=== PATIENT | male | born 1995 | race Hispanic/Latino ===

== ENCOUNTER 2023-02-05 23:23 | Inpatient (IN) | payer OTHER, SELFPAY ==
[2023-02-06] MEDS ORDERED: Morphine 2 MG/ML VIAL ONE (00:46)
[2023-02-06] MEDS ORDERED: Ondansetron PF 4 MG/2 ML Vial ONE ×2 (00:46→12:56)
[2023-02-06 00:53] LABS: #Eosinphils 0.1 thou/uL (0.0-0.7); #Monocytes 0.6 thou/uL (0.11-0.59); #Neutrophils 4.6 thou/uL (1.40-6.50); %Basophils 0.4 % (0.0-1.0); %Eosinophils 1.2 % (0.0-10.0); %Monocytes 7.7 % (0.0-10.0); Hematocrit 49.5 % (42.0-52.0); Hemoglobin 15.6 g/dL (14.0-18.0); Mean Corpuscular HGB CONC 31.5 g/dL (32.0-36.0); Mean Corpuscular Volume 88.9 fl (78.0-98.0); Mean Platelet Volume 8.7 fL (7.4-10.4); Platelet Count 283 10x3/uL (130-400); RBC Distribution Width 14.9 % (11.5-14.5); Red Blood Cell (RBC) Count 5.57 mill/uL (4.70-6.10); White Blood Cell (WBC) Count 7.5 10x3/uL (4.8-10.8)
[2023-02-06 01:17] LABS: ALT (SGPT) 37 U/L (8-55); AST (SGOT) 51 U/L (5-34); Albumin 4.1 g/dL (3.5-5.0); Alcohol 190.8 mg/dL (Less than 10); Alkaline Phosphatase 76 U/L (40-110); Anion Gap 17 mmol/L (10-20); BUN (Urea Nitrogen) 7 mg/dL (8.9-20.6); Bilirubin, Total 0.2 mg/dL (0.2-1.2); Calc. Creatinine Clearance 0 mL/min (70-130); Calcium 8.7 mg/dL (7.8-10.44); Carbon Dioxide 23 mmol/L (22-29); Chloride 109 mmol/L (98-107); Estimated GFR 127; Globulin 3.4 g/dL (2.4-3.5); Glucose 94 mg/dL (70-105); Potassium 3.9 mmol/L (3.5-5.1); Protein, Total 7.5 g/dL (6.0-8.3); Sodium 145 mmol/L (136-145)
[2023-02-06] MEDS ORDERED: Sodium Chloride 0.9% 1,000 ML IV SCH (02:15)
[2023-02-06] MEDS ORDERED: Acetaminophen 325 MG TAB PO PRN (02:15)
[2023-02-06] MEDS ORDERED: Ondansetron ODT 4 MG TAB SL PRN (02:15)
[2023-02-06] MEDS ORDERED: Ondansetron PF 4 MG/2 ML Vial IVP PRN ×2 (02:15→15:04)
[2023-02-06 04:00] LABS: Lactic Acid 1.8 mmol/L (0.5-2.2)
[2023-02-06 04:03] VITALS: BMI 26.7
[2023-02-06] MEDS ORDERED: Morphine 4 MG/ML VIAL SLOW IVP PRN (06:43)
[2023-02-06] MEDS ORDERED: Ketorolac Tromethamine 30 MG (1 mL) VIAL IVP PRN ×2 (06:43)
[2023-02-06] MEDS: Lactated Ringer's 1,000 ML IV SCH ×2 (06:57→15:30)
[2023-02-06] MEDS ORDERED: CEFAZOLIN 2 GM in Sodium Chloride 0.9% 100 ML IVPB SCH (07:15)
[2023-02-06] MEDS ORDERED: Acetaminophen 325 MG TAB PO SCH (09:00)
[2023-02-06] MEDS ORDERED: Iopamidol-370 76% 500 ML MDV (1 ML CHARGE) ONE (09:57)
[2023-02-06] MEDS: Acetaminophen 500 MG TAB PO SCH ×2 (10:30→14:09)
[2023-02-06] MEDS ORDERED: CEFAZOLIN 2 GM VIAL ONE (12:54)
[2023-02-06] MEDS ORDERED: Sodium Chloride 0.9% 100 ML ONE (12:54)
[2023-02-06] MEDS ORDERED: PROPOFOL 20 ML ONE (12:56)
[2023-02-06] MEDS ORDERED: Dexamethasone 4 mg/ml Vial ONE (12:56)
[2023-02-06] MEDS ORDERED: Fentanyl 250 MCG/5 ML VIAL ONE (12:56)
[2023-02-06] MEDS ORDERED: Rocuronium Bromide 10 MG/ML (10ML VIAL) ONE (12:56)
[2023-02-06] MEDS ORDERED: Ketorolac Tromethamine 30 MG (1 mL) VIAL ONE (12:56)
[2023-02-06] MEDS ORDERED: Bupivacaine PF 0.5% 30 ML VIAL ONE (13:41)
[2023-02-06] MEDS ORDERED: EPINEPHrine 1 MG/ML VIAL ONE (13:41)
[2023-02-06] MEDS ORDERED: HYDROmorphone/PF 10 MG in Sodium Chloride 0.9% 99 ML IV PRN (15:04)
[2023-02-06] MEDS ORDERED: diphenhydrAMINE 50 MG/ML VIAL IM PRN (15:04)
[2023-02-06] MEDS ORDERED: diphenhydrAMINE 25 MG CAP PO PRN (15:04)
[2023-02-06] MEDS ORDERED: Morphine Sulfate 2 MG/ML SYRINGE SLOW IVP PRN (15:04)
[2023-02-06] MEDS ORDERED: diphenhydrAMINE 50 MG/ML VIAL IVP PRN (15:04)
[2023-02-06] MEDS ORDERED: Naloxone HCl 0.4 mg/ml Vial IV PRN (15:04)
[2023-02-06] MEDS ORDERED: Ondansetron HCl/PF 4 MG/2 ML Vial IVP PRN (15:04)
[2023-02-06] MEDS ORDERED: Meperidine HCl/PF 25 MG/ML VIAL SLOW IVP PRN (15:04)
[2023-02-06] MEDS ORDERED: Promethazine HCl 25 MG/ML VIAL IM PRN ×2 (15:04)
[2023-02-06] MEDS ORDERED: HYDROmorphone 2 MG/ML VIAL SLOW IVP PRN (15:04)
[2023-02-06] MEDS ORDERED: HYDROmorphone 2 MG/ML VIAL ONE (15:08)
[2023-02-06] MEDS ORDERED: NEOSTIGMINE 3 MG/3 ML SYR 3 MG/3 ML SYRINGE ONE (15:09)
[2023-02-06] MEDS ORDERED: Glycopyrrolate 0.2 MG/ML 5 ML SYRINGE ONE (15:09)
[2023-02-06] MEDS ORDERED: ACTIVE PCA FS SCH (15:15)
[2023-02-06] MEDS: CEFAZOLIN 2 GM in Sodium Chloride 0.9% 100 ML IVPB SCH (20:10)
[2023-02-07] MEDS: Lactated Ringer's 1,000 ML IV SCH ×4 (02:01→21:07)
[2023-02-07] MEDS: CEFAZOLIN 2 GM in Sodium Chloride 0.9% 100 ML IVPB SCH (05:40)
[2023-02-07 08:47] LABS: #Monocytes 0.8 thou/uL (0.11-0.59); #Neutrophils 5.5 thou/uL (1.40-6.50); %Basophils 0.1 % (0.0-1.0); %Eosinophils 0.4 % (0.0-10.0); %Lymphocytes 20.7 % (21.0-51.0); %Monocytes 10.2 % (0.0-10.0); %Neutrophils 68.4 % (42.0-75.0); Mean Corpuscular HGB CONC 33.1 g/dL (32.0-36.0); Mean Corpuscular Hemoglobin 28.4 pg (27.0-31.0); Mean Corpuscular Volume 85.8 fl (78.0-98.0); Mean Platelet Volume 8.8 fL (7.4-10.4); Platelet Count 241 10x3/uL (130-400); RBC Distribution Width 14.7 % (11.5-14.5); Red Blood Cell (RBC) Count 3.87 mill/uL (4.70-6.10); White Blood Cell (WBC) Count 8.1 10x3/uL (4.8-10.8)
[2023-02-07 08:56] LABS: Hematocrit 33.2 % (42.0-52.0)
[2023-02-07] MEDS ORDERED: HYDROcodone/Acetaminophen 10/325 mg Tablet PO PRN (09:29)
[2023-02-07] MEDS: HYDROcodone/Acetaminophen 10/325 mg Tablet PO PRN ×3 (09:49→23:16)
[2023-02-07] MEDS: fentaNYL 50 mcg/mL 1 mL Vial SLOW IVP PRN ×2 (11:29→17:08)
[2023-02-07] MEDS: Enoxaparin 40 MG (0.4 mL) SYRINGE SC SCH (19:34)
[2023-02-08 05:15] LABS: #Eosinphils 0.1 thou/uL (0.0-0.7); #Neutrophils 6.5 thou/uL (1.40-6.50); %Basophils 0.2 % (0.0-1.0); %Eosinophils 0.8 % (0.0-10.0); %Lymphocytes 20.5 % (21.0-51.0); %Monocytes 10.4 % (0.0-10.0); %Neutrophils 67.8 % (42.0-75.0); Hematocrit 32.9 % (42.0-52.0); Hemoglobin 10.8 g/dL (14.0-18.0); Mean Corpuscular HGB CONC 32.8 g/dL (32.0-36.0); Mean Corpuscular Hemoglobin 28.1 pg (27.0-31.0); Mean Corpuscular Volume 85.5 fl (78.0-98.0); Mean Platelet Volume 8.7 fL (7.4-10.4); Platelet Count 223 10x3/uL (130-400); RBC Distribution Width 14.5 % (11.5-14.5); Red Blood Cell (RBC) Count 3.85 mill/uL (4.70-6.10); White Blood Cell (WBC) Count 9.6 10x3/uL (4.8-10.8)
[2023-02-08 05:42] LABS: Anion Gap 8 mmol/L (10-20); BUN (Urea Nitrogen) 6 mg/dL (8.9-20.6); Calc. Creatinine Clearance 196 mL/min (70-130); Calcium 8.4 mg/dL (7.8-10.44); Carbon Dioxide 31 mmol/L (22-29); Chloride 100 mmol/L (98-107); Estimated GFR 132; Glucose 102 mg/dL (70-105); Potassium 3.8 mmol/L (3.5-5.1); Sodium 135 mmol/L (136-145)
[2023-02-08] MEDS: HYDROcodone/Acetaminophen 10/325 mg Tablet PO PRN ×2 (09:02→12:50)
[2023-02-08] MEDS: Enoxaparin 40 MG (0.4 mL) SYRINGE SC SCH (09:03)
[2023-02-08 11:25] VITALS: BP 129/62; TEMP 99.2
[2023-02-08] MEDS: Lactated Ringer's 1,000 ML IV SCH (11:47)
== END 2023-02-08 16:59 | disposition home or self-care (01) | DRG 511 ==
LOC: ERS 23:23 → ERHOLD 02-06 02:10 → SURG A 02-06 02:12
PROVIDERS: ADMIT Specialist; ATTEND Specialist
PROC: 0PSL04Z Reposition Left Ulna with Internal Fixation Device, Open Approach (ICD-10-PCS; principal; 2023-02-06)
PROC: 0PSJXZZ Reposition Left Radius, External Approach (ICD-10-PCS; 2023-02-06)
DX: S52.272A Monteggia's fracture of left ulna, initial encounter for closed fracture (principal); S06.0XAA Concussion with loss of consciousness status unknown, initial encounter; F10.129 Alcohol abuse with intoxication, unspecified; F17.210 Nicotine dependence, cigarettes, uncomplicated; S52.022A Displaced fracture of olecranon process without intraarticular extension of left ulna, initial encounter for closed fracture; S63.025A Dislocation of radiocarpal joint of left wrist, initial encounter; V49.9XXA Car occupant (driver) (passenger) injured in unspecified traffic accident, initial encounter
CPT/HCPCS: 29515; 36415; 36416; 70450; 71260; 72125; 74177; 80048; 80053; 80307; 83605; 85025; 93005; 96374; 96375; C1713; C1874; G0390; J0171; J1100; J1170; J1650; J1885; J2272; J2405; J2704; J3010; J3490; J7050; J7120; Q9967; S0020